=== PATIENT | female | born 1955 | race Caucasian/White ===

== ENCOUNTER 2018-12-13 18:55 | Inpatient (IN) ==
[2018-12-13] MEDS ORDERED: TYLENOL PO ONE (19:01)
--- NOTE | 2018-12-13 20:31 | Diag Imaging Result Doc PS360 ---
CHEST-2 VIEWS - 12/13/2018 INDICATION: SOB, fever COMPARISON: 06/13/2018 FINDINGS: There is a dense focal infiltrate in the left lower lobe. Heart size is normal. No pneumothorax or pleural effusion. IMPRESSION: Dense infiltrate at the lateral left lung probably in the lower lobe. The appearance is indeterminate. Correlate for possible pneumonia. Electronically signed by Jorge Blanco 12/13/2018 8:29 PM
[2018-12-13 20:43] LABS: BASO# 0.02 X1000 (0.0-0.2); BASO% 0.1 % (0.0-0.8); HEMATOCRIT 35.8 % (37.0-47.0); HEMOGLOBIN 11.4 g/dL (12.0-16.0); IMM GRAN# 0.14 X1000 (0.0-0.04); IMM GRAN% 0.4 % (0.0-0.5); LYMPH# 0.71 X1000 (1.2-3.4); MCH 26.7 PG (27-31); MCHC 31.8 g/dL (33-37); MCV 83.8 FL (81-99); MONO# 2.14 X1000 (0.11-0.59); MPV 10.9 FL (7.4-10.4); NEUT# 32.66 X1000 (1.4-6.5); NEUT% 91.5 % (42.2-75.2); PLT 565 X1000 (130-400); RBC 4.27 XMIL (4.2-5.4); RDW 15.8 % (11.5-14.5); WBC 35.67 X1000 (4.8-10.8)
[2018-12-13 20:52] LABS: URINE SOURCE CLEAN CATCH
[2018-12-13 21:01] LABS: BILIRUBIN URINE NEGATIVE (NEGATIVE); BLOOD URINE MODERATE (NEGATIVE); COLOR YELLOW; GLUCOSE URINE NEGATIVE (NEGATIVE); KETONE URINE TRACE mg/dL (NEGATIVE); LEUKOCYTES URINE LARGE (NEGATIVE); NITRITE URINE NEGATIVE (NEGATIVE); PH URINE 5.5; PROTEIN URINE 50 mg/dL (NEGATIVE); SP GRAVITY URINE 1.018; TURBIDITY URINE TURBID (CLEAR); UROBILINOGEN URINE 2 mg/dL (NORMAL)
[2018-12-13 21:02] LABS: BANDS 3 % (0-1); LYMPHS 5 % (21-51); MONO 6 % (1-9); SEGS 86 % (42-75)
[2018-12-13 21:02] LABS: UR EPITHELIAL CELLS <10 /HPF (<10); URINE BACTERIA 1+ /HPF; URINE RBC TNTC /HPF (<10); URINE WBC 20-40 /HPF (<10)
[2018-12-13] MEDS ORDERED: ROCEPHIN 1 GM in NS 50 ML IV ONE (21:03)
[2018-12-13] MEDS ORDERED: NS 1,000 ML IV ONE ×2 (21:03→21:22)
[2018-12-13 21:07] LABS: AGAP 17; ALB/GLOB RATIO 1.1; ALBUMIN 3.9 g/dL (3.5-5.0); ALKALINE PHOSPHATASE 86 U/L (32-104); BUN 23 mg/dL (8-22); CALCIUM 9.6 mg/dL (8.8-10.2); CHLORIDE 93 mmol/L (98-107); COSMO 268; CREATININE 0.8 mg/dL (0.5-0.9); ESTIMATED GFR > 60; GLUCOSE 94 mg/dL (70-104); GOT 21 U/L (10-30); GPT 7 U/L (10-36); MAGNESIUM 1.6 mg/dL (1.5-2.7); POTASSIUM 3.9 mmol/L (3.5-5.1); SODIUM 132 mmol/L (136-145); TCO2 22 mmol/L (25-35); TOTAL BILIRUBIN 0.39 mg/dL (0.20-1.00); TOTAL PROTEIN 7.5 g/dL (6.3-8.3)
--- NOTE | 2018-12-13 21:46 | Diag Imaging Result Doc PS360 ---
CT ABD/PELVIS W/IV CONT ONLY - 12/13/2018 INDICATION: abdo pain COMPARISON: None FINDINGS: The lung bases are clear and the heart size is normal. There is a relatively large hiatal hernia. There is also a tiny, 1-2 cm fat-containing ventral hernia. The gallbladder is not demonstrated. Otherwise abdominal organs all appear normal. No bowel obstruction or inflammation. Urinary bladder, uterus, and rectum are normal. There are moderate degenerative changes of the spine. No acute or suspicious bony lesion. IMPRESSION: Hiatal hernia. No acute disease. This exam was performed using automated exposure control, adjustment of mA or kV according to patient size, and/or use of iterative reconstruction technique Electronically signed by Jorge Blanco 12/13/2018 9:43 PM
[2018-12-13] MEDS ORDERED: NS NEB INH SCH (23:52)
[2018-12-13] MEDS ORDERED: TYLENOL PO PRN (23:52)
[2018-12-13] MEDS ORDERED: ZOFRAN IV PRN (23:52)
[2018-12-14] MEDS: MUCOMYST 20% INH SCH ×2 (00:26→19:05)
[2018-12-14] MEDS: XOPENEX NEB INH SCH ×3 (00:26→19:05)
[2018-12-14] MEDS: MAXIPIME 2 GM in NS 100 ML IV SCH ×4 (00:50→22:53)
[2018-12-14] MEDS: NS 1,000 ML IV SCH ×3 (00:50→10:41)
[2018-12-14] MEDS: PROTONIX IV SCH ×3 (00:51→22:54)
[2018-12-14 00:56] LABS: ALLEN TEST YES; BE -0.7 mmoll (-3.0-3.0); BLOOD TYPE ARTERIAL; HCO3-(ACT) 24.3 mmoll (20.0-26.0); O2(CT) 13.5 mL/dL (15.0-23.0); O2HB 93.5 % (95.0-99.0); PCO2(98.6) 33 mmHg (35-45); PO2(98.6) 70 mmHg (60-100); SAMPLE BLOOD; SAO2 96.3 % (95.0-100.0); THB 10.2 g/dL (11.5-17.4); pH(98.6) 7.45 (7.35-7.45)
[2018-12-14 00:57] LABS: MODALITY CANNULA
--- NOTE | 2018-12-14 03:20 | HISTORY AND PHYSICAL ---
CHIEF COMPLAINT: Shortness of breath. HISTORY OF PRESENT ILLNESS: This is a 63-year-old female with a longstanding smoking history and COPD, who is coming in with severe shortness of breath the last 2 to 3 days. She came in with productive cough for the last 2 to 3 days, shortness of breath. Family reports nausea and vomiting last night. No diarrhea. She does suffer from chronic constipation. She sees a senior project engineer in the [place] area, possibly a Dr. Escobedo, and she is being set up with a singer and unloader, although no cardiac history per se. She has at least a 40 pack year history of smoking. She stopped smoking about 3 days ago, just because she could not tolerate it. No reported fevers. She is legally blind. 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 She has been seen in [place] and [facility] for that. She came in the ER, from my standpoint septic, even though her lactate was normal. She was tachycardic with heart rate in the 140s, respiratory rate up to the 40s. Now that has since improved. Temperature of 103.1 degrees, 94% on room air. Cardiovascular, regular rate and rhythm. Workup showed a left upper lobe infiltrate. She also had evidence of a possible urinary tract infection. She has been complaining of left-sided flank pain. Also found to have a white count of 35,000. Abdominal CT was negative. She was admitted for pneumonia, UTI, sepsis. PAST MEDICAL HISTORY: 1. COPD. 2. Anxiety and depression. 3. Hyperlipidemia. 4. Hypothyroidism. 5. GERD. No cardiac history. No diabetes. PAST SURGICAL HISTORY: Again, attempted surgery on her face due to an arterial malformation but that could not be completed. SOCIAL HISTORY: Again, she smokes probably over a pack a day, probably a 40 pack year history. No alcohol. No drugs. She lives with family. MEDICATIONS: Medication list is incomplete. She is on reportedly Zocor, Abilify, docusate, fenofibrate, iron sulfate, Synthroid, Prilosec, Protonix, and Effexor. REVIEW OF SYSTEMS: No weight loss or appetite changes. She does have some chronic constipation. No chest pain. No diarrhea. No dysuria. No hematuria. No hematochezia. No melena. Otherwise, negative times a 10 point review of systems. PHYSICAL EXAMINATION: VITAL SIGNS: Blood pressure is currently 90s/70s. Heart rate is down to the 90s and had been in the 130s, respiratory rate is around the 20s and had been up to the 40s, and temperature was a 103.1 degrees. GENERAL: A well-developed female in mild distress. HEENT: Pupils equal, round, and reactive to light. Ears, nose, and throat exam, moist mucous membranes. NECK: Supple. CARDIOVASCULAR EXAMINATION: Tachycardia. PULMONARY: Diffuse rhonchi. She had rales in her left upper lobe. GI: Soft, nontender, nondistended. Bowel sounds were positive. EXTREMITY EXAMINATION: No clubbing or cyanosis. LYMPHATICS: No peripheral edema. NEUROLOGICAL: Examination was nonfocal. LABORATORY DATA: Her white count is 35,000 with 3% bands, hemoglobin and hematocrit 11 and 35, platelets 565,000. Comp was normal. She had large leukocytes, khq-[id number]-fq-count red blood cells but less than 10. Her flu screen was negative but this flu season, it seems commonly negative. ASSESSMENT AND PLAN: A 63-year-old female with a history of chronic obstructive pulmonary disease, dyslipidemia, presenting with shortness of breath, cough, fever, and pneumonia, and then likely possible urinary tract infection. 1. Left upper lobe pneumonia, I would say complicated. At this point, it is community-acquired but she has some degree of sepsis with tachycardia and fever. We went ahead and volume resuscitated her accordingly and we will start antibiotics, cefepime and azithromycin, and follow. We will continue pulmonary toilet. I am going to go ahead and progress with a CT scan tomorrow and a pulmonary consult. 2. Respiratory failure. We will continue to follow. Oxygen levels are not terrible. We will check ABG and monitor closely. 3. Continue gastrointestinal and deep venous thrombosis prophylaxis. 4. Hypothyroidism. We will continue checking her thyroid function and update her medications. 5. Possible urinary tract infection. We will obtain urine culture and treat accordingly. Follow closely. 6. This is a patient of Dr. Da Aguilar. I think he is in the [facility]. cc: Kalpesh Le MD
[2018-12-14 05:44] LABS: BASO# 0.02 X1000 (0.0-0.2); BASO% 0.1 % (0.0-0.8); HEMATOCRIT 30.8 % (37.0-47.0); HEMOGLOBIN 9.8 g/dL (12.0-16.0); IMM GRAN# 0.15 X1000 (0.0-0.04); IMM GRAN% 0.5 % (0.0-0.5); LYMPH# 1.19 X1000 (1.2-3.4); LYMPH% 3.7 % (20.5-51.1); MCH 26.8 PG (27-31); MCHC 31.8 g/dL (33-37); MCV 84.4 FL (81-99); MONO# 1.64 X1000 (0.11-0.59); MONO% 5.1 % (1.7-9.3); MPV 10.5 FL (7.4-10.4); NEUT# 29.44 X1000 (1.4-6.5); NEUT% 90.6 % (42.2-75.2); PLT 456 X1000 (130-400); RBC 3.65 XMIL (4.2-5.4); WBC 32.44 X1000 (4.8-10.8)
[2018-12-14 06:00] LABS: AGAP 12; ALB/GLOB RATIO 1.4; ALBUMIN 3.3 g/dL (3.5-5.0); ALKALINE PHOSPHATASE 61 U/L (32-104); BUN 20 mg/dL (8-22); CALCIUM 9.1 mg/dL (8.8-10.2); CHLORIDE 104 mmol/L (98-107); COSMO 276; CREATININE 0.7 mg/dL (0.5-0.9); ESTIMATED GFR > 60; GLUCOSE 91 mg/dL (70-104); GOT 14 U/L (10-30); GPT 5 U/L (10-36); POTASSIUM 4.2 mmol/L (3.5-5.1); SODIUM 137 mmol/L (136-145); TCO2 21 mmol/L (25-35); TOTAL BILIRUBIN 0.26 mg/dL (0.20-1.00); TOTAL PROTEIN 5.6 g/dL (6.3-8.3)
[2018-12-14] MEDS ORDERED: LOVENOX SUBQ SCH (06:00)
--- NOTE | 2018-12-14 09:43 | Diag Imaging Result Doc PS360 ---
EXAM: CT THORAX W/CONTRAST INDICATION: pneumonia TECHNIQUE: This exam was performed using automated exposure control, adjustment of mA or kV according to patient size, and/or use of iterative reconstruction technique. COMPARISON: None. FINDINGS: There is dense airspace consolidation involving the inferior lingular segment of the left upper lobe consistent with pneumonia. There is minimal consolidation and/or atelectasis at the lateral left lower lobe at the base. There is no pleural fluid collection and no pneumothorax. There are shotty mildly prominent mediastinal lymph nodes that are probably reactive. There is no cardiomegaly. There is a fairly large hiatal hernia. There are a few mild nonspecific distended loops of small bowel in the upper abdomen, likely representing ileus. IMPRESSION: 1.Left upper lobe pneumonia as described and minimal infiltrate versus atelectasis at the left lung base. 2.A few distended loops of small bowel involving the upper abdomen that are nonspecific. Electronically signed by Ru West 12/14/2018 9:41 AM
[2018-12-14] MEDS ORDERED: VANCOMYCIN IV PER PHARMACY MISC SCH (09:45)
[2018-12-14 09:50] LABS: URINE SOURCE CATH
[2018-12-14 09:55] LABS: BILIRUBIN URINE NEGATIVE (NEGATIVE); BLOOD URINE MODERATE (NEGATIVE); COLOR YELLOW; GLUCOSE URINE NEGATIVE (NEGATIVE); KETONE URINE NEGATIVE (NEGATIVE); LEUKOCYTES URINE NEGATIVE (NEGATIVE); NITRITE URINE NEGATIVE (NEGATIVE); PROTEIN URINE 30 mg/dL (NEGATIVE); SP GRAVITY URINE > 1.050; TURBIDITY URINE CLEAR (CLEAR); UR EPITHELIAL CELLS <10 /HPF (<10); URINE BACTERIA NEGATIVE /HPF; URINE RBC <10 /HPF (<10); URINE WBC <10 /HPF (<10); UROBILINOGEN URINE NORMAL (NORMAL)
--- NOTE | 2018-12-14 10:13 | PROGRESS NOTE ---
DATE: 12/14/2018 OVERNIGHT EVENTS: Ms. Harley was admitted for severe sepsis secondary to left upper lobe pneumonia with a suspected urinary tract infection, was given intravenous fluids, and was started on intravenous antibiotics. SUBJECTIVE: The patient, at the time of my encounter, complains of persistent shortness of breath, left-sided pleuritic chest pain. She denies palpitations, nausea, vomiting, or abdominal pain. She states that she has been legally blind since she was 18. She does have some residual vision on the right side. I discussed about her critical condition and plans for keeping her inside the hospital in a closely monitored environment. VITALS: Temperature 98.5 degrees, pulse 114 per minute, blood pressure 111/74, saturating 93% on 2 L nasal cannula. OBJECTIVE: General: Appears in mild distress because of tachypnea. HEENT: She has corneal scarring affecting left eye. Right eye pupil is round and reacting to light. She also has a bony deformity affecting forehead. Lungs: Air entry bilaterally equal, tachypneic. No wheeze, rhonchi, or crackles on the right side. However, decreased air entry with inspiratory crackles on the left infrascapular region. Cardiovascular: S1, S2 normal. No murmur, gallop, tachycardic. Abdomen: Soft, nontender. Lower Extremities: No edema. Input and output: Suggests -150 mL. Lee catheter order has been placed. LAB: Suggests persistent leukocytosis, normocytic anemia, thrombocytosis, normal ABG, resolution of hyponatremia, hypochloremia, normal kidney function, low TSH. Microbiology: No data as of yet. IMAGING: Chest CT is suggestive of left upper lobe infiltrate. ASSESSMENT AND PLAN: 1. Severe sepsis from left upper lobe pneumonia. Follow up with sputum culture and blood culture. Follow up with urine Legionella antigen. Continue intravenous cefepime and add intravenous vancomycin. 2. Tachycardia, likely in the setting of sepsis. Continue intravenous fluids. I decreased the intravenous fluid rate, as the patient had received adequate intravenous fluids by boluses and continuous infusions. 3. Continue urine Lee catheterization for close input and output monitoring. 4. History of hypothyroidism. Continue home levothyroxine. Continue ferrous sulfate for history of anemia. 5. Continue home buspirone and venlafaxine for history of anxiety and simvastatin for history of hyperlipidemia. 6. History of chronic obstructive pulmonary disease. Continue levalbuterol and home tiotropium inhalers. 7. Disposition. The patient will be transferred to [facility]. If her blood pressure drops, my plan is to start her on norepinephrine and transfer to ICU. Plan of care was discussed with the patient and nursing team at the bedside. All of their questions have been answered. cc: Nick Toledo MD
[2018-12-14] MEDS ORDERED: VANCOMYCIN 1,500 MG in NS 250 ML IV ONE (11:00)
[2018-12-14] MEDS: LOMOTIL PO PRN ×2 (16:05→20:16)
[2018-12-14] MEDS: FERROUS SULFATE PO SCH (20:07)
[2018-12-14] MEDS: ZOCOR PO SCH (20:07)
[2018-12-14] MEDS: BUSPAR PO SCH (20:08)
[2018-12-14] MEDS: NORCO-7.5 PO PRN (20:35)
[2018-12-14] MEDS: SODIUM CHLORIDE 0.9% INJ SCH (22:44)
[2018-12-15] MEDS: NS 1,000 ML IV SCH ×2 (01:09→14:08)
--- NOTE | 2018-12-15 01:32 | CONSULTATION ---
DATE OF CONSULTATION: 12/14/2018 REQUESTING PROVIDER: Dr. Ilia Le. REASON FOR CONSULTATION: Pneumonia, respiratory failure. HISTORY OF PRESENT ILLNESS: This is a 63-year-old female with a medical history of COPD, hyperlipidemia, hypothyroidism, gastroesophageal reflux disease, chronic constipation, tobacco abuse, legal blindness, anxiety and depression. She presented to the ER on 12/13/2018 with severe shortness of breath for 2 to 3 days with productive cough, nausea, vomiting, constipation and left-sided flank pain. In the ER, she was tachycardic with heart rate at 140s, tachypnea with respiratory rate at 40s, temperature of 103.1 degrees. Chest x- ray showed dense focal infiltrates in the left lower lobe. Lab revealed significant leukocytosis with white blood cell up to 35.67. She has been admitted for pneumonia, UTI and sepsis. At the time of my exam, patient's daughter and sister are at the bedside. The patient has 1 episode of severe dry cough. She also reports shortness of breath and left-sided pleuritic chest pain. She denies headache, nausea, vomiting, abdominal pain or palpitation. PAST MEDICAL HISTORY: 1. COPD. 2. Hyperlipidemia. 3. Hypothyroidism. 4. Gastroesophageal reflux disease. 5. Chronic constipation. 6. Tobacco abuse. 7. Legal blindness since patient was 18-year-old. She had some residual vision on her right eye. 8. Anxiety and depression. PAST SURGICAL HISTORY: Attempted surgery on her face due to an arterial malformation but that could not be completed. SOCIAL HISTORY: Patient lives alone with Home Health care. She reports she smokes 1 pack per day for over 40 years. She tried to quit one time for about 1-1/2 months without medication. She says she is ready to quit smoking again, but she would like to quit with medication. She denies alcohol or illicit drug use. FAMILY HISTORY: Reviewed and noncontributory. ALLERGIES: No known drug allergies. REVIEW OF SYSTEMS: A 10 point review of system was conducted and the pertinent is listed within the HPI, otherwise noncontributory. PHYSICAL EXAMINATION: Vital Signs: Temperature 98.6 degrees, blood pressure 114/67, pulse 116, respiratory rate 20, oxygen saturation 98% with nasal cannula at 2 L. General : Appears in moderate respiratory distress with persistent dry cough, and shortness of breath and tachypnea. HEENT: Trachea midline. Mucosa pink and slightly dry. Patient is legally blind with some residual vision in her right eye. She has a bone deformity on her forehead. Respiratory: Tachypnea. Chest expansion bilaterally equal. Diminished breathing sounds bibasilarly with the left side worse than the right side. Rhonchi bilaterally. No wheezing or crackles noted. Cardiovascular: Regular rate and rhythm without appreciable murmur. Gastrointestinal: Normoactive bowel sounds in all 4 quadrants. Soft, nondistended, and nontender. Extremities: No pedal edema. No cyanosis. No clubbing. Neurologic: Alert, oriented x3 with generalized weakness. DIAGNOSTIC DATA: Chest CT revealed left upper lobe pneumonia and minimal infiltrate versus atelectasis at the left lung base, a few distended loops of small bowel involving the upper abdomen that are nonspecific. LAB DATA: White blood cell 32.44, hemoglobin 9.8, hematocrit 30.8, platelet 456 ,000. Sodium 137, potassium 4.2, chloride 104, carbon dioxide 21, BUN 20, creatinine 0.7, glucose 91. ABG, pH 7.45, pCO2 33, PO2 70, HC03 24.3, base excess -0.7 and oxyhemoglobin 93.5. ASSESSMENT AND PLAN: This is a 63-year-old female with a medical history of chronic obstructive pulmonary disease, hyperlipidemia, hypothyroidism, gastroesophageal reflux disease, chronic constipation, tobacco abuse, legal blindness, anxiety and depression. She has been admitted to the [facility] for pneumonia, UTI and sepsis. 1. Left upper lobe pneumonia. Agree with fluid resuscitation and antibiotic therapy. Agree with pulmonary toilet. 2. Respiratory failure. Continue supplemental oxygen as needed. Check ABG and chest x-ray as indicated. 3. Sepsis, preliminary results of blood culture and urine cultures are negative at this time. Continue antibiotics until the final results of blood and urine cultures come out. Continue fluid resuscitation. 4. Chronic obstructive pulmonary disease. No exacerbation. Continue bronchodilators. Continue supplemental oxygen as needed. 5. Tobacco abuse. Nicotine patch scheduled. Smoking cessation education. 6. Continue gastrointestinal and deep venous thrombosis prophylaxis. Thank you for the courtesy of this consult. Dictated by THADDEUS Zarco for Collin Mckeon MD cc: THADDEUS Zarco MD [facility]
[2018-12-15] MEDS: XOPENEX NEB INH SCH ×2 (03:00→21:02)
[2018-12-15 05:36] LABS: BASO# 0.01 X1000 (0.0-0.2); BASO% 0.1 % (0.0-0.8); EOS# 0.09 X1000 (0.0-0.7); EOS% 0.6 % (0.0-10.0); HEMATOCRIT 32.2 % (37.0-47.0); IMM GRAN# 0.03 X1000 (0.0-0.04); IMM GRAN% 0.2 % (0.0-0.5); LYMPH# 1.28 X1000 (1.2-3.4); LYMPH% 8.5 % (20.5-51.1); MCH 26.7 PG (27-31); MCHC 31.1 g/dL (33-37); MCV 85.9 FL (81-99); MONO# 0.93 X1000 (0.11-0.59); MONO% 6.2 % (1.7-9.3); MPV 10.4 FL (7.4-10.4); NEUT# 12.68 X1000 (1.4-6.5); NEUT% 84.4 % (42.2-75.2); PLT 424 X1000 (130-400); RBC 3.75 XMIL (4.2-5.4); RDW 16.5 % (11.5-14.5); WBC 15.02 X1000 (4.8-10.8)
[2018-12-15] MEDS: SYNTHROID PO SCH ×2 (05:47→07:21)
[2018-12-15 06:04] LABS: AGAP 12; BUN 11 mg/dL (8-22); CALCIUM 8.8 mg/dL (8.8-10.2); CHLORIDE 108 mmol/L (98-107); COSMO 282; CREATININE 0.6 mg/dL (0.5-0.9); ESTIMATED GFR > 60; GLUCOSE 90 mg/dL (70-104); POTASSIUM 3.9 mmol/L (3.5-5.1); SODIUM 142 mmol/L (136-145); TCO2 22 mmol/L (25-35)
[2018-12-15] MEDS: ASPIRIN EC PO SCH (08:38)
[2018-12-15] MEDS: NICODERM PATCH TD SCH ×2 (08:38→22:08)
[2018-12-15] MEDS: LOVENOX SUBQ SCH (08:38)
[2018-12-15] MEDS: FERROUS SULFATE PO SCH ×2 (08:38→20:15)
[2018-12-15] MEDS: BUSPAR PO SCH ×2 (08:38→20:14)
[2018-12-15] MEDS ORDERED: NON-FORMULARY MED (Omeprazole [Prilosec] 40 MG) PO SCH (09:00)
[2018-12-15] MEDS ORDERED: SYNTHROID PO SCH (09:00)
[2018-12-15] MEDS: EFFEXOR XR PO SCH (11:36)
[2018-12-15] MEDS: MAXIPIME 2 GM in NS 100 ML IV SCH ×2 (11:36→21:38)
--- NOTE | 2018-12-15 12:47 | PROGRESS NOTE ---
DATE: 12/15/2018 OVERNIGHT EVENTS: She was transferred to [facility] from the emergency room. She has not had any fever episode. Her map is running low, between 60 to 65. However, she was making an adequate amount of urine. She was tolerating low blood pressure spells. SUBJECTIVE: She is complaining of cough, with expectoration and some chest pain associated with cough. She also has some nausea. The patient's sister is at bedside. Plan of care has been discussed with her. All of her questions have been answered. OBJECTIVE: Vitals: Current temperature 98 degrees, pulse 95, blood pressure 101/49, saturating 96% on room air. General: Appears in mild distress because of cough. HEENT: She has corneal scarring affecting the left eye. Right eye pupil is round and reactive to light. She has bony deformity affecting the forehead and left shoulder. Lungs: Air entry bilaterally equal. No wheeze or rhonchi or crackles on the right side, however, significantly decreased air entry with inspiratory crackles in the left infrascapular region. Cardiovascular: S1, S2 normal. Tachycardic. No murmur, rub, or gallop. Abdomen: Soft, nontender. Extremities: No lower extremity edema. : Lee catheter has been in place. Input and output suggests 1200 mL of urine output. DIAGNOSTIC DATA: Labs suggestive of improving leukocytosis, stable hemoglobin and hematocrit, and acceptable range of platelet count, normal kidney function, with improvement in BUN. Microbiology, no on positive data as of yet, except positive urine streptococcal antigen. IMAGING: No new imaging today except chest CT yesterday, which was suggestive of left upper lobe pneumonia. ASSESSMENT AND PLAN: 1. Severe sepsis from left upper lobe pneumonia, with positive urine streptococcal antigen, likely streptococcal pneumonia. Follow up final blood and sputum culture results. Continue intravenous cefepime and stop intravenous vancomycin after final results of culture of blood and sputum come back. 2. Tachycardia in the setting of sepsis. Continue the patient on intravenous fluids. Continue Lee catheter for close input and output. Monitor. 3. For history of hypothyroidism, chronic anemia, hyperlipidemia, and anxiety, continue home levothyroxine, ferrous sulfate, buspirone, venlafaxine and simvastatin. 4. History of COPD. Continue albuterol and ipratropium nebulization, and Ditropan. 5. Disposition. The patient remains inside [facility] for streptococcal pneumonia and sepsis. Because of that, the plan of care was discussed with the patient and sister at bedside. All of their questions have been answered. cc: Nick Toledo MD
[2018-12-15] MEDS: NORCO-7.5 PO PRN ×2 (14:08→21:37)
[2018-12-15] MEDS: ZOCOR PO SCH (20:14)
[2018-12-15] MEDS: MUCOMYST 20% INH SCH (21:00)
[2018-12-15] MEDS: VANCOMYCIN 1,300 MG in NS 250 ML IV SCH (21:26)
[2018-12-15] MEDS: PROTONIX IV SCH (21:37)
--- NOTE | 2018-12-15 23:15 | PULMONOLOGY PROGRESS NOTE ---
DATE: 12/15/2018 SUBJECTIVE: The patient is awake, alert, and conversant. She reports she feels better than on admission. OBJECTIVE: The patient has been afebrile over the last 24 hours. Blood pressure 110/55, heart rate 96, respiratory rate 16, oxygen saturation 95% on 2 L per nasal cannula. HEENT: Pupils are equal and reactive. Oropharynx is clear. Neck: Supple. Chest: Reveals crackles in the left mid lung zone but clear on the right. Cardiac exam: S1, S2. Abdomen: Soft and without hepatosplenomegaly. Extremities: Without edema. LABORATORIES: Streptococcal pneumonia urine antigen is positive. Sodium 142, potassium 3.9, chloride 108, bicarbonate 22, BUN 11, creatinine 0.6. White blood count 15.02, hemoglobin 10.0, platelet count 424,000. IMPRESSION: A 63-year-old with chronic obstructive pulmonary disease, pneumococcal pneumonia, urinary tract infection, with hypoxemic respiratory failure. Clinically, she appears to be improving. RECOMMENDATIONS: 1. Continue IV fluids but consider discontinuing in the next 24 hours if p.o. intake is adequate to prevent fluid overload. 2. Continue bronchial hygiene. 3. Continue oxygen for hypoxemic respiratory failure. 4. Continue DVT prophylaxis. 5. Continue current antibiotic regimen. cc: Александр Ramirez MD
[2018-12-16] MEDS: VANCOMYCIN 1,300 MG in NS 250 ML IV SCH (00:06)
[2018-12-16] MEDS: PROTONIX IV SCH ×2 (00:06→23:10)
[2018-12-16] MEDS: NS 1,000 ML IV SCH ×2 (00:34→07:14)
[2018-12-16] MEDS ORDERED: AYR NASAL SPRAY NAS PRN (01:55)
[2018-12-16] MEDS: XOPENEX NEB INH SCH ×4 (03:39→21:32)
[2018-12-16] MEDS: MAXIPIME 2 GM in NS 100 ML IV SCH ×3 (05:00→23:09)
[2018-12-16] MEDS: SYNTHROID PO SCH ×2 (05:40→06:07)
[2018-12-16 06:35] LABS: AGAP 9; BUN 6 mg/dL (8-22); CALCIUM 8.5 mg/dL (8.8-10.2); CHLORIDE 111 mmol/L (98-107); COSMO 283; CREATININE 0.6 mg/dL (0.5-0.9); ESTIMATED GFR > 60; GLUCOSE 114 mg/dL (70-104); POTASSIUM 3.1 mmol/L (3.5-5.1); SODIUM 143 mmol/L (136-145); TCO2 23 mmol/L (25-35)
[2018-12-16] MEDS: ASPIRIN EC PO SCH (08:40)
[2018-12-16] MEDS: NICODERM PATCH TD SCH (08:40)
[2018-12-16] MEDS: EFFEXOR XR PO SCH (08:40)
[2018-12-16] MEDS: FERROUS SULFATE PO SCH ×2 (08:40→21:04)
[2018-12-16] MEDS: BUSPAR PO SCH ×2 (08:40→21:04)
[2018-12-16] MEDS: MUCOMYST 20% INH SCH ×3 (09:43→21:32)
[2018-12-16] MEDS: OLODATEROL HCL IH SCH (09:44)
[2018-12-16] MEDS: TIOTROPIUM BR IH SCH (09:44)
[2018-12-16] MEDS ORDERED: MAGNESIUM SULFATE 2 GM/S.W.I. 2 GM/50 ML IVPB IV ONE (10:42)
[2018-12-16] MEDS: LOVENOX SUBQ SCH (11:26)
[2018-12-16] MEDS: KLOR-CON PO SCH ×3 (12:03→21:04)
--- NOTE | 2018-12-16 13:08 | PROGRESS NOTE ---
DATE: 12/16/2018 Overnight no acute events. SUBJECTIVE: When I saw her, she was sitting in the chair by the bed. She is denying any chest pain. She is still feeling a little short of breath. She is coughing up yellowish expectoration which is persistent. Her maps have been 60 to 65. Discussed about pneumonia. Patient's daughter is at bedside who is her surrogate decision maker. Plan of care has been discussed with her. PHYSICAL EXAMINATION: Vital Signs: Currently, temperature of 98.1 degrees, pulse 90, blood pressure 126/68, saturating 95% on room air. General: She has corneal scarring affecting the left eye. Right eye pupil is round and reacting to light. She has a bony deformity affecting the forehead and left shoulder. Lungs: Air entry bilaterally equal. No wheeze or rhonchi. Mild inspiratory crackles on right infrascapular region. Decreased air entry and inspiratory crackles on left infrascapular region. Cardiovascular: S1, S2 normal. Not tachycardic. No murmur, rub, or gallop. Abdomen: Soft, nontender. Extremities: No lower extremity edema. She has a Lee catheter in place. Input and output suggests positive 600 mL since admission. However, it is not charted appropriately. LABORATORY DATA: Suggestive of hypokalemia and hyperchloremia. ASSESSMENT AND PLAN: 1. Severe sepsis from left upper lobe pneumonia with positive urine streptococcal antigen, likely streptococcal pneumonia. Sputum culture has not shown any growth. Blood culture has been negative. I will discontinue intravenous vancomycin and continue intravenous cefepime. The plan is to eventually transition her to p.o. antibiotics once her oxygen requirement becomes stable. 2. Tachycardia in the setting of sepsis. It is a sinus tachycardia on rhythm strip. I will get official EKG. 3. Acute hypoxic respiratory failure with history of chronic obstructive pulmonary disease. Continue albuterol and ipratropium nebulization. Continue oxygenation to maintain saturation more than 92%. Continue acetylcysteine. Continue levalbuterol nebulization. 4. History of hypothyroidism, chronic anemia, hyperlipidemia, and anxiety. Continue home levothyroxine, ferrous sulfate, buspirone, venlafaxine and simvastatin. 5. Hypokalemia being repleted. 6. Hyperchloremia likely because of normal saline resuscitation. I will discontinue intravenous fluids. Discontinue Lee catheter. I advanced the patient's diet to regular. 7. Disposition: Patient remains in [facility] for streptococcal pneumonia and sepsis. Plan of care was discussed with the patient's daughter at bedside. All of the questions have been answered. cc: Nick Toledo MD
--- NOTE | 2018-12-16 14:57 | PULMONOLOGY PROGRESS NOTE ---
DATE: 12/16/2018 SUBJECTIVE: The patient is laying in bed. She is awake, alert, and conversant. She has significant rhonchi. She is asking for her Lee catheter to be removed. OBJECTIVE: The patient has been afebrile for the last 24 hours. BP 126/68, heart rate 90, respiratory rate 18, oxygen saturation 95% on 2 L per nasal cannula. HEENT: Pupils are equal and reactive. Oropharynx is clear. Neck is supple. Chest reveals coarse rhonchi bilaterally. Cardiac Exam: S1-S2. Abdomen is soft and without hepatosplenomegaly. Extremities reveal trace edema. LABORATORIES: Sodium 143, potassium 4.1, chloride 111, bicarbonate 23. BUN 6, creatinine 0.6. Sputum cultures reveal normal bebeto with gram-positive cocci. IMPRESSION: A 63-year-old with 1. Chronic obstructive pulmonary disease. 2. Pneumococcal pneumonia. 3. Urinary tract infection. 4. Hypoxemic respiratory failure. She has more rhonchi on exam today and may be mobilizing secretions. RECOMMENDATIONS: 1. Continue bronchial hygiene. 2. Continue antibiotics. 3. Continue DVT prophylaxis. 4. I agree with plans to discontinue Lee catheter. 5. Mobilize patient and get her out of bed as tolerated. 6. Two-view chest x-ray tomorrow morning. cc: Александр Ramirez MD
[2018-12-16] MEDS: ZOCOR PO SCH (21:04)
[2018-12-17] MEDS: XOPENEX NEB INH SCH ×5 (04:00→21:43)
[2018-12-17 05:45] LABS: BASO# 0.02 X1000 (0.0-0.2); BASO% 0.3 % (0.0-0.8); EOS# 0.21 X1000 (0.0-0.7); HEMATOCRIT 28.2 % (37.0-47.0); HEMOGLOBIN 8.8 g/dL (12.0-16.0); IMM GRAN# 0.03 X1000 (0.0-0.04); IMM GRAN% 0.4 % (0.0-0.5); LYMPH# 1.12 X1000 (1.2-3.4); LYMPH% 15.8 % (20.5-51.1); MCH 26.6 PG (27-31); MCHC 31.2 g/dL (33-37); MCV 85.2 FL (81-99); MONO% 9.9 % (1.7-9.3); MPV 10.3 FL (7.4-10.4); NEUT% 70.6 % (42.2-75.2); PLT 528 X1000 (130-400); RBC 3.31 XMIL (4.2-5.4); WBC 7.08 X1000 (4.8-10.8)
[2018-12-17 06:18] LABS: AGAP 8; BUN 4 mg/dL (8-22); CHLORIDE 110 mmol/L (98-107); COSMO 282; CREATININE 0.6 mg/dL (0.5-0.9); ESTIMATED GFR > 60; GLUCOSE 95 mg/dL (70-104); MAGNESIUM 2.2 mg/dL (1.5-2.7); POTASSIUM 4.5 mmol/L (3.5-5.1); SODIUM 143 mmol/L (136-145); TCO2 25 mmol/L (25-35)
[2018-12-17] MEDS: SYNTHROID PO SCH (06:24)
[2018-12-17] MEDS: LOVENOX SUBQ SCH (08:44)
[2018-12-17] MEDS: EFFEXOR XR PO SCH (08:44)
[2018-12-17] MEDS: BUSPAR PO SCH ×3 (08:44→22:22)
[2018-12-17] MEDS: ASPIRIN EC PO SCH (08:44)
[2018-12-17] MEDS: NICODERM PATCH TD SCH (08:44)
[2018-12-17] MEDS: FERROUS SULFATE PO SCH ×3 (08:44→22:22)
[2018-12-17] MEDS: NORCO-7.5 PO PRN ×2 (08:53→19:31)
--- NOTE | 2018-12-17 10:44 | PROGRESS NOTE ---
DATE: 12/17/2018 OVERNIGHT EVENTS: Overnight, no acute events. SUBJECTIVE: She is feeling fine. She is breathing well on room air. Denies chest pain or shortness of breath. She is still coughing up some sputum. I discussed with her about her normal WBC count and her clinical improvement. The patient's daughter is at bedside, who is her surrogate decision maker. All of her questions have been answered. VITAL SIGNS: Temperature 98.3 degrees, pulse 97 per minute, blood pressure 150/70, saturating 95% on room air. PHYSICAL EXAMINATION: General: Does not appear in any acute distress. HEENT: Oral cavity is moist. Right pupil is round, reacting to light. She has corneal scarring affecting the left eye. Musculoskeletal: She has a bony deformity affecting forehead and left shoulder. Respiratory: Air entry bilaterally equal. In suprascapular region, inspiratory crackles with decreased air entry in left infrascapular region with egophony. Cardiovascular: S1, S2 normal. Not tachycardic. No murmur, rub, or gallop. Abdomen: Soft, nontender. Extremities: No lower extremity edema. Genitourinary: She does not have a Lee catheter in place. DIAGNOSTIC DATA: EKG was suggestive of normal sinus rhythm. Lab data suggestive of resolution of leukocytosis, hemoglobin of 8.8, and platelet count of 528,000. Resolution of hypokalemia. Normal kidney function. ASSESSMENT AND PLAN: 1. Severe sepsis from left upper lobe pneumonia with positive urine streptococcal antigen, so likely streptococcal pneumonia. Sputum culture is no growth to date. Urine culture had Klebsiella pneumoniae. Continue intravenous cefepime. Follow up with repeat chest x-ray. My plan is to change her from intravenous to oral antibiotics at the time of discharge to complete 7 to 10 days course of treatment as she still has some cough. 2. Tachycardia, sinus on electrocardiogram, in the setting of sepsis, improving. 3. Acute hypoxic respiratory failure with history of chronic obstructive pulmonary disease. Continue albuterol/ipratropium nebulization and oxygenation as required to maintain saturation more than 92%. Continue acetylcysteine. 4. History of hypothyroidism, chronic anemia, hyperlipidemia, and anxiety. Continue home levothyroxine, ferrous sulfate, buspirone, venlafaxine, and simvastatin. 5. Hypokalemia, now resolved. 6. Hyperchloremia because of normal saline resuscitation, now improving. 7. Disposition. I will have physical therapy evaluate the patient. If her functional status is normal, she might be a candidate for discharge to home early next week. Plan of care was discussed with her and her daughter at bedside. All of their questions have been answered. I will transfer patient from [facility] to routine floor. cc: Nick Toledo MD
[2018-12-17] MEDS: TIOTROPIUM BR IH SCH (10:50)
[2018-12-17] MEDS: OLODATEROL HCL IH SCH (10:50)
[2018-12-17] MEDS: MUCOMYST 20% INH SCH ×2 (10:50→21:43)
--- NOTE | 2018-12-17 11:41 | Diag Imaging Result Doc PS360 ---
EXAM: CHEST-2 VIEWS - 12/17/2018 HISTORY: abnormal exam TECHNIQUE: Chest two views COMPARISON: 12/13/2018 FINDINGS: Heart size is normal. There is an air-containing retrocardiac density consistent with hiatal hernia. There has been some increase in left lower lung opacity, which appears to represent a combination of infiltrate and atelectasis. The right lung remains essentially clear. There is a possible small left pleural effusion. There is no pneumothorax identified. IMPRESSION: Some increase in left lower lung infiltrate and atelectasis. Electronically signed by Huseyin Wilson 12/17/2018 11:38 AM
[2018-12-17] MEDS: MAXIPIME 2 GM in NS 100 ML IV SCH (17:00)
[2018-12-17] MEDS: ZOCOR PO SCH ×2 (19:32→22:22)
--- NOTE | 2018-12-17 20:27 | PULMONOLOGY PROGRESS NOTE ---
DATE: 12/17/2018 SUBJECTIVE: Patient reports she feels better. She does have some cough and sputum production, but this has diminished. OBJECTIVE: Vital Signs: The patient has been afebrile for the last 24 hours. Blood pressure 142/70, heart rate 99, respiratory rate 16, oxygen saturation 97%. HEENT: Right pupil is equal, reactive. She has some dysconjugate gaze. Oropharynx appears clear. Neck: Supple. Chest reveals crackles at the left base. Cardiac: S1, S2. Abdomen: Soft without hepatosplenomegaly. Extremities: Without edema. LABORATORIES: Chest x-ray reveals some persistent infiltrates at the left base compared to 12/13/2018. White blood count is now normal at 7.08, hemoglobin 8.8, platelet count 528,000. Sodium 143, potassium 4.5, chloride 110, bicarbonate 25, BUN 4, creatinine 0.6. IMPRESSION: A 63-year-old with chronic obstructive pulmonary disease, who presented with fevers. Initial x-ray was relatively clear, but she has developed infiltrates in the left lung. She has a positive urinary tract antigen for pneumococcus and therefore is being treated for pneumococcal pneumonia. The patient also has a urinary tract infection and acute hypoxemic respiratory failure. Her fevers have resolved and her white blood count is normalizing. RECOMMENDATION: 1. Continue antibiotics. 2. Continue bronchial hygiene. 3. Continue deep vein thrombosis prophylaxis. 4. Ambulate as tolerated. 5. If the patient continues to improve, she could likely be discharged home on oral antibiotics to complete her treatment for pneumonia. She should have a follow-up chest x-ray as a patient. cc: Александр Ramirez MD
[2018-12-17] MEDS: SODIUM CHLORIDE 0.9% INJ SCH (23:09)
[2018-12-17] MEDS: PROTONIX IV SCH (23:09)
[2018-12-18] MEDS: NORCO-7.5 PO PRN ×2 (01:38→11:43)
[2018-12-18] MEDS: MAXIPIME 2 GM in NS 100 ML IV SCH (02:59)
[2018-12-18] MEDS: XOPENEX NEB INH SCH ×2 (04:00→09:34)
[2018-12-18] MEDS: SYNTHROID PO SCH ×2 (04:06→07:36)
[2018-12-18 07:25] VITALS: BP 139/82
[2018-12-18 07:45] LABS: AGAP 11; BUN 5 mg/dL (8-22); CALCIUM 9.4 mg/dL (8.8-10.2); CHLORIDE 101 mmol/L (98-107); COSMO 272; CREATININE 0.7 mg/dL (0.5-0.9); ESTIMATED GFR > 60; GLUCOSE 81 mg/dL (70-104); SODIUM 138 mmol/L (136-145); TCO2 26 mmol/L (25-35)
--- NOTE | 2018-12-18 07:49 | EKG Report ---
Test Performed on : 12/16/2018 12:20:19 PM Test Reason : Tachcycardia Blood Pressure : / mmHG Vent. Rate : 087 BPM Atrial Rate : 087 BPM P-R Int : 136 ms QRS Dur : 072 ms QT Int : 362 ms P-R-T Axes : 042 017 049 degrees QTc Int : 435 ms Normal sinus rhythm. artifact limits leads V3-V5 Otherwise normal ECG When compared with ECG of 13-JUN-2018 14:54, Borderline criteria for Inferior infarct are no longer present Confirmed by Albina QUICK, Raymundo Rios ([id number]) on 12/18/2018 1:14:51 PM
[2018-12-18] MEDS: ASPIRIN EC PO SCH (08:41)
[2018-12-18] MEDS: BUSPAR PO SCH (08:41)
[2018-12-18] MEDS: FERROUS SULFATE PO SCH (08:42)
[2018-12-18] MEDS: NICODERM PATCH TD SCH (08:42)
[2018-12-18] MEDS: OLODATEROL HCL IH SCH (08:42)
[2018-12-18] MEDS: LOVENOX SUBQ SCH (08:42)
[2018-12-18] MEDS: EFFEXOR XR PO SCH (08:42)
[2018-12-18] MEDS: TIOTROPIUM BR IH SCH (08:42)
[2018-12-18] MEDS: MUCOMYST 20% INH SCH (09:33)
[2018-12-18] MEDS ORDERED: PROTONIX PO SCH (21:00)
[2018-12-18] MEDS ORDERED: AUGMENTIN PO SCH (21:00)
--- NOTE | 2018-12-19 04:52 | DISCHARGE SUMMARY ---
ADMISSION DATE: 12/13/2018 DISCHARGE DATE: 12/18/2018 DISCHARGE DIAGNOSES: 1. Severe sepsis. 2. Left upper lobe pneumonia. 3. Positive urine streptococcal antigen. 4. Sinus tachycardia in the setting of sepsis. 5. Acute hypoxic respiratory failure because of streptococcal pneumonia. 6. History of chronic obstructive pulmonary disease. 7. Hypokalemia. 8. Hyperchloremia because of normal saline fluid resuscitation. 9. Klebsiella pneumoniae infection in urine but without symptoms so likely asymptomatic bacteriuria. OTHER DIAGNOSES: 1. History of hypothyroidism. 2. History of chronic anemia with iron deficiency. 3. History of hyperlipidemia. 4. History of anxiety. CONSULTATION DURING HOSPITALIZATION: Pulmonology, Dr. Ramirez. IMAGING DURING HOSPITALIZATION: Chest x-ray on December 13 had detected dense infiltrate in the left lung. Abdomen and pelvis CT had detected hiatal hernia. Chest CT on December 14 had detected left upper lobe pneumonia and minimal infiltrate versus atelectasis of left lung base with a few distended loops of small bowel. Chest x-ray on December 17 had detected some increase in left lung infiltrate and atelectasis. However, the patient had clinically significantly improved. DISCHARGE MEDICATIONS: Simvastatin 40 mg at nighttime, Aripiprazole 10 mg daily, aspirin 81 mg daily, buspirone 15 mg b.i.d., docusate sodium 100 mg b.i.d., fenofibrate 160 mg daily , ferrous sulfate 325 mg b.i.d., levothyroxine 100 mcg daily, omeprazole 40 mg daily, tiotropium/ olodaterol 2 puffs inhaled daily, venlafaxine 150 mg daily, Augmentin 875 mg p.o. b.i.d. (8 tablets ), nicotine patch 21 mg every 24 hours of 14 patches. She was also given a prescription for a repeat chest x-ray and CBC within 1 week. VITAL SIGNS: At the time of discharge, temperature of 98.2, pulse 110 per minute, blood pressure 140/80, saturation 94% on room air. PHYSICAL EXAMINATION: General: At the time of discharge, the patient is awake , alert, walking in the room without any trouble. Denies chest pain or shortness of breath. Lungs : Air entry bilaterally equal in suprascapular region. Slightly diminished air entry in left infrascapular region. However, it is significantly improved than presentation with only mild inspiratory crackles. No wheeze or rhonchi. Cardiovascular: S1 and S2 normal. No murmur , rub, or gallop. Tachycardic with heart rate of 110 per minute but patient is asymptomatic. LABORATORY DATA: Normal electrolytes. CBC at the time of discharge had WBC of 7000, hemoglobin of 8.8, platelets of 528,000. Electrolytes were within normal limits. Microbiology: Urine culture was growing Klebsiella pneumoniae. Urine streptococcal antigen was positive. HOSPITAL COURSE SUMMARY: Ms. Harley is a 63-year-old lady with a longstanding smoking history and COPD who had quit smoking about 3 years ago, who came in with a history of a productive cough of 3 days' duration and shortness of breath. There were also complaints of nausea and vomiting. While in the hospital, a CT scan had detected left upper lobe pneumonia for which she was started on intravenous antibiotics. She was initially requiring oxygen as well. After intravenous antibiotics, intravenous cefepime and intravenous vancomycin, her clinical status improved. Her breathing and cough had improved. At the time of discharge, she had only occasional residual cough and she was breathing well on room air. She was able to walk in the room and hallway without any trouble. She was stable enough to be discharged. She was given prescriptions to get a repeat chest x-ray and CBC within 1 week and follow up with nail tech as an outpatient. 1. Severe sepsis from left upper lobe pneumonia with positive urine streptococcal antigen, status post intravenous vancomycin and cefepime. At the time of discharge, she is to complete Augmentin to complete 7 to 10 days course of antibiotics. 2. Sinus tachycardia on electrocardiogram in the setting of sepsis was stable. 3. Acute hypoxic respiratory failure with a history of COPD. She was continued on nebulization and at the time of discharge, did not need oxygen. 4. She was continued on levothyroxine for hypothyroidism, ferrous sulfate for chronic anemia, buspirone and venlafaxine for her anxiety, and simvastatin for hyperlipidemia. DISCHARGE INSTRUCTIONS: She was also extensively counseled about avoiding smoking and nicotine patches were given. More than 30 minutes were spent in discharging this patient. cc: Nick Toledo MD [facility]
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
== END 2018-12-18 15:04 | disposition home health service (06) | DRG 871 ==
LOC: ED 18:55 → EDIPHOLD 22:07 → SUATTDRO 22:07 → 3S 12-14 14:21 → 4N 12-17 10:18
PROVIDERS: ATTEND Internal Medicine
CPT/HCPCS: 51702; 71020; 71046; 71260; 74177; 80048; 80053; 81001; 82550; 82805; 83605; 83735; 84443; 84484; 85025; 87040; 87070; 87077; 87088; 87186; 87205; 87275; 87276; 87486; 87498; 87541; 87581; 87633; 87640; 87641; 87651; 87798; 87804; 87899; 93005; 93010; 94640; 94761; 96361; 96365; 96367; 96372; 96375; 97162; 99285; A9270; C9113; J0692; J0696; J1650; J2405; J3370; J3475; J7030; J7050; Q9967; S0164

== ENCOUNTER 2019-06-17 09:56 | Inpatient (IN) ==
[2019-06-17] MEDS ORDERED: NS 1,000 ML IV ONE (11:05)
[2019-06-17] MEDS ORDERED: DUONEB (A & A) INH ONE (11:06)
--- NOTE | 2019-06-17 12:21 | Diag Imaging Result Doc PS360 ---
EXAM: CHEST-PORTABLE 06/17/2019 HISTORY: shortness of breath TECHNIQUE: AP upright at 1210 COMMENT: There is a large hiatal hernia. Compared to 12/17/2018 the pleural and parenchymal changes on the left have resolved. No additional abnormalities are present. IMPRESSION: Hiatal hernia. Electronically signed by Anibal Rosales 06/17/2019 12:19 PM
[2019-06-17 12:32] LABS: BASO# 0.01 X1000 (0.0-0.2); BASO% 0.1 % (0.0-0.8); EOS# 0.03 X1000 (0.0-0.7); EOS% 0.3 % (0.0-10.0); HEMATOCRIT 22.6 % (37.0-47.0); HEMOGLOBIN 6.6 g/dL (12.0-16.0); IMM GRAN# 0.02 X1000 (0.0-0.04); IMM GRAN% 0.2 % (0.0-0.5); LYMPH# 1.39 X1000 (1.2-3.4); LYMPH% 15.4 % (20.5-51.1); MCH 26.1 PG (27-31); MCHC 29.2 g/dL (33-37); MCV 89.3 FL (81-99); MONO% 7.8 % (1.7-9.3); MPV 9.2 FL (7.4-10.4); NEUT# 6.88 X1000 (1.4-6.5); NEUT% 76.2 % (42.2-75.2); PLT 565 X1000 (130-400); RBC 2.53 XMIL (4.2-5.4); WBC 9.03 X1000 (4.8-10.8)
[2019-06-17 13:01] LABS: AGAP 9; ALB/GLOB RATIO 1.4; ALKALINE PHOSPHATASE 45 U/L (32-104); BUN 46 mg/dL (8-22); CALCIUM 8.7 mg/dL (8.8-10.2); CHLORIDE 105 mmol/L (98-107); CK PROFILE 50 U/L (24-173); COSMO 288; CREATININE 0.8 mg/dL (0.5-0.9); ESTIMATED GFR > 60; GLUCOSE 105 mg/dL (70-104); GOT 7 U/L (10-30); GPT < 5 U/L (10-36); POTASSIUM 4.8 mmol/L (3.5-5.1); SODIUM 138 mmol/L (136-145); TCO2 24 mmol/L (25-35); TOTAL BILIRUBIN < 0.15 mg/dL (0.20-1.00); TOTAL PROTEIN 5.2 g/dL (6.3-8.3)
[2019-06-17] MEDS ORDERED: ZOFRAN IV PRN (13:47)
[2019-06-17] MEDS ORDERED: DUONEB (A & A) INH PRN (13:49)
--- NOTE | 2019-06-17 13:58 | PROVIDER DOCUMENTATION ---
This chart was entered by Andrea Davis Scribe, acting as scribe for Vicente Martel DO. HPI-Respiratory General - General Chief Complaint: Nausea/Vomiting Stated Complaint: SICK OVER A WEEK Time Seen by Provider: 06/17/19 10:57 Source: patient Allergies/Adverse Reactions: Patient Allergies Allergy/AdvReac Type Severity Reaction Status Date / Time No Known Allergies Allergy Verified 12/13/18 20:11 Home Medications: Home Medication List Medication Instructions Recorded Confirmed Last Taken Type Aripiprazole 10 mg PO DAILY 06/13/18 12/14/18 12/13/18 07:00 History Docusate Sodium [Doc-Q-Lace] 100 mg PO BID 06/13/18 12/14/18 12/13/18 07:00 History Fenofibrate 160 mg PO DAILY 06/13/18 12/14/18 12/13/18 07:00 History Ferrous Sulfate 325 mg PO BID 06/13/18 12/14/18 12/13/18 07:00 History Levothyroxine Sodium 100 mcg PO DAILY 06/13/18 12/14/18 12/13/18 07:00 History Omeprazole [Prilosec] 40 mg PO DAILY 06/13/18 12/14/18 12/13/18 07:00 History SIMVAstatin [Zocor] 40 mg PO QHS 06/13/18 12/14/18 12/12/18 20:00 History Venlafaxine HCl [Venlafaxine HCl 150 mg PO DAILY 06/13/18 12/14/18 12/13/18 07:00 History ER] Aspirin [Aspir-Low] 81 mg PO DAILY 12/14/18 12/14/18 12/13/18 07:00 History Buspirone HCl 15 mg PO BID 12/14/18 12/14/18 12/13/18 07:00 History Tiotropium Br/Olodaterol HCl 2 puff IH DAILY 12/14/18 12/14/18 12/12/18 14:00 History [Stiolto Respimat Inhal [place]] Amoxicillin/Pot Clavulanate 875 mg PO BID #8 tab 12/18/18 Unknown Rx [Augmentin] Nicotine Patch [Nicoderm Patch] 21 mg TD DAILY #14 patch.td24 12/18/18 Unknown Rx - History of Present Illness-Resp Nature of Presenting Problem: Pt is 63 y/o F presents to the ED with SOB, N/V stating she thinks she could be dehydrated. She could not says specifically when this all began but says it ahas been intermittent for about 1 week. She reports a HX of COPD. Quality of Pain: reports: none Severity in ED: reports: moderate Onset/Duration: reports: 1 week ago Timing: reports: still present Context: denies: recent foreign travel Exposure: reports: unknown cause Cough Quality/Degree: reports: no cough Current Respiratory Medication Therapy: Initiated see nurses note Modifying Factors: improves with: nothing Associated Symptoms: reports: shortness of breath. denies: cough, dizziness, fever/chills, hurts to breathe, hyperventilating, lightheadedness, nasal congestion Similar Symptoms Previously?: Yes Recently seen or treated by another doctor?: No Review of Systems - Adult - REVIEW OF SYSTEMS - ADULT Constitutional: denies: chills, fever Eyes: reports: no symptoms reported Ears, Nose, Mouth & Throat: denies: ear pain, throat pain Cardiovascular: denies: chest pain, edema Respiratory: reports: shortness of breath, wheezing. denies: cough Gastrointestinal: reports: abdominal pain, nausea, vomiting Genitourinary: denies: dysuria, discharge Musculoskeletal: denies: back pain, neck pain Integumentary: reports: no symptoms reported Neurological: denies: dizziness/vertigo, headache/migraines, slurred speech, syncope Psychiatric: reports: no symptoms reported Endocrine: reports: no symptoms reported Hematologic/Lymphatic: reports: no symptoms reported Allergic/Immunologic: reports: no symptoms reported All Other Systems: Reviewed and Negative Past History - Adult - PAST MEDICAL HISTORY-ADULT Review of Records: reports: Old Records Reviewed, Nursing Assessment Review, Medications Reviewed Major Childhood Illnesses: reports: denies history Cardiovascular: reports: denies history Respiratory: reports: denies history Gastrointestinal: reports: denies history Obstetrical/Gynecological: reports: denies history Genitourinary: reports: denies history Musculoskeletal: reports: denies history Neurological: reports: denies history Psychiatric: reports: denies history Endocrine/Immune: reports: denies history Other Conditions: reports: denies history - PRIOR SURGERIES/PROCEDURES Surgical/Procedure History: reports: reviewed, not pertinent - IMMUNIZATION STATUS Childhood Immunizations: See Nurse Assessment Flu Vaccine: See Nurse Assessment - FAMILY HISTORY Family History: reviewed, not pertinent - SOCIAL HISTORY Smoking: non-smoker Living Situation: alone Physical Exam-General - PHYSICAL EXAM-ADULT Initial Vital Signs Reviewed: Yes - CONSTITUTIONAL General Appearance: appears well, alert, no apparent distress - EYES Eyes: PERRL/EOMI, pink conjunctivae - NECK Neck: non-tender, full range of motion, supple, normal inspection - RESPIRATORY Respiratory: decreased breath sounds, rales (bilateral), wheezing (bilateral), increased rate - CARDIOVASCULAR Cardiovascular: normal peripheral pulses, tachycardia - GASTROINTESTINAL (ABDOMEN) Abdominal Exam: normal bowel sounds, tenderness (diffuse) - MUSCULOSKELETAL Back Exam: normal inspection, no CVA tenderness, no vertebral tenderness Extremity: normal range of motion, non-tender, normal gait, normal inspection - SKIN Integumentary: normal color, normal turgor, warm/dry - NEUROLOGIC Neurologic: grossly normal, no motor/sensory deficits - PSYCHIATRIC Psych/Mental Status: normal mood/affect, normal thought content, normal thought process, oriented x 3 Progress - PLAN OF CARE/RESULTS Progress/Plan/Lab Results: Vital Signs - 8 hr 06/17/19 10:08 06/17/19 11:44 Temperature 97.8 F Pulse Rate 108 H 101 H Respiratory Rate 22 20 Blood Pressure 107/71 O2 Sat by Pulse Oximetry 97 99 06/17/19 13:20 Stool Occult Blood (GIGI) - Final Stool Laboratory Results - last 24 hr 06/17/19 06/17/19 06/17/19 12:24 12:24 12:24 WBC RBC Hgb Hct MCV MCH MCHC RDW Std Deviation Plt Count MPV Immature Gran % (Auto) Neut % (Auto) Lymph % (Auto) [place] % (Auto) Eos % (Auto) Baso % (Auto) Immature Gran # (Auto) Neut # (Auto) Lymph # (Auto) [place] # (Auto) Eos # (Auto) Baso # (Auto) Sodium 138 Potassium 4.8 Chloride 105 Carbon Dioxide 24 L Anion Gap 9 BUN 46 H Creatinine 0.8 Estimated GFR/1.73 m2 > 60 BUN/Creatinine Ratio 58 Glucose 105 H Calculated Osmolality 288 Calcium 8.7 L Total Bilirubin < 0.15 L AST 7 L ALT < 5 L Alkaline Phosphatase 45 Creatine Kinase 50 Troponin T < 0.010 Kkk-C-Wsfdvheltmb Pept 157 Total Protein 5.2 L Albumin 3.0 L Globulin 2.2 Albumin/Globulin Ratio 1.4 06/17/19 12:24 WBC 9.03 RBC 2.53 L Hgb 6.6 L Hct 22.6 L MCV 89.3 MCH 26.1 L MCHC 29.2 L RDW Std Deviation 20.0 H Plt Count 565 H MPV 9.2 Immature Gran % (Auto) 0.2 Neut % (Auto) 76.2 H Lymph % (Auto) 15.4 L [place] % (Auto) 7.8 Eos % (Auto) 0.3 Baso % (Auto) 0.1 Immature Gran # (Auto) 0.02 Neut # (Auto) 6.88 H Lymph # (Auto) 1.39 [place] # (Auto) 0.70 H Eos # (Auto) 0.03 Baso # (Auto) 0.01 Sodium Potassium Chloride Carbon Dioxide Anion Gap BUN Creatinine Estimated GFR/1.73 m2 BUN/Creatinine Ratio Glucose Calculated Osmolality Calcium Total Bilirubin AST ALT Alkaline Phosphatase Creatine Kinase Troponin T Okz-C-Galzwktpmoh Pept Total Protein Albumin Globulin Albumin/Globulin Ratio Orders Category Date Time Status IV Insertion ORDERED Care 06/17/19 12:15 Completed Nursing- MD Consult Request ROUTINE Care 06/17/19 13:45 Active Transfuse .Give-Transfuse Care 06/17/19 13:44 Active MD [Physician/Provider Consults] Routine Cons 06/17/19 13:44 Ordered Clear Liquid Diet Diet 06/17/19 13:48 Active NPO Diet 06/18/19 00:01 Active CHEST-PORTABLE [RAD] Stat Exams 06/17/19 11:08 Completed CBC WITH ELECTRONIC DIFF [HEME] Stat Lab 06/17/19 12:24 Completed CK PROFILE [SP CHEM] Stat Lab 06/17/19 12:24 Completed COMPREHENSIVE METABOLIC PANEL [CHEM] Stat Lab 06/17/19 12:24 Completed FERRITIN Routine Lab 06/18/19 06:00 Ordered FOLATE Routine Lab 06/18/19 06:00 Uncollected OCCULT BLOOD SCREENING [STOOL] Stat Lab 06/17/19 13:20 Completed PRBC [LRPC (RED CELLS)] [BBK] Stat Lab 06/17/19 13:44 Uncollected PRO B-NATRIURETIC PEPTIDE Stat Lab 06/17/19 12:24 Completed TOTAL IRON [CHEM] Routine Lab 06/18/19 06:00 Uncollected TROPONIN T Stat Lab 06/17/19 12:24 Completed TSH Routine Lab 06/18/19 06:00 Ordered TYPE & SCREEN [BBK] Stat Lab 06/17/19 13:44 Uncollected UIBC W TOTAL IRON [CHEM] Routine Lab 06/18/19 06:00 Uncollected VITAMIN B12 Routine Lab 06/18/19 06:00 Uncollected 0.9% Sodium Chloride Inj [Ns] 1,000 ml Med 06/17/19 11:05 Discontinued IV 500 mls/hr 0.9% Sodium Chloride Inj [Ns] 1,000 ml Med 06/17/19 14:00 Active IV 75 mls/hr Albuterol 2.5MG/Ipratrop 0.5MG [Duoneb (A & A)] Med 06/17/19 11:06 Discontinued 3 ml INH NOW ONE Albuterol 2.5MG/Ipratrop 0.5MG [Duoneb (A & A)] Med 06/17/19 13:49 Active 3 ml INH Q2H PRN PRN Ondansetron [Zofran] Med 06/17/19 13:47 Active 4 mg IV Q4H PRN PRN Aerosol Treatments Routine Oth 06/17/19 11:07 Completed Aerosol Treatments Routine Oth 06/17/19 13:49 Active Aerosol Treatments Stat Oth 06/17/19 11:07 Completed Aerosol Treatments Stat Oth 06/17/19 13:49 Active Result Diagrams: 06/17/19 12:24 06/17/19 12:24 - CONSULTS/PCP/HOSPITALIST Notification #1 *Consult/PCP/Hospitalist*: Hospitalist Dr Liz- Spoke with Aida Time Discussed: 13:44 Reason/Comments: admission- accepts Consult Disposition: Will see in ED Departure - Departure Date of Disposition Decision: 06/17/19 Time of Disposition Decision: 13:57 DIAGNOSIS: Shortness of breath, Anemia Disposition: ADMITTED INPATIENT 09 Certified Medical Emergency: Emergent Condition: Stable Referrals and Follow-Ups: None,PCP [Primary Care Provider] - - Critical Care Note This patient required my direct & personal management of CC.: No Attestation - Physician/ VIDHI Attestation Patient care was provided by Advanced Practice Provider:: No The physician spent face to face time with patient:: Yes Advanced Practice Provider documentation review:: Supervising physician onsite and consulted in the evaluation and care of this patient. The physician did have a face to face encounter with the patient. This chart was documented by the indicated scribe, (Andrea Davis Scribe) and accurately reflects the services I performed and decisions made by , Vicente Martel DO, as attested by the provider's signature.
[2019-06-17] MEDS ORDERED: PROTONIX 80 MG in NS 80 ML IV ONE (14:14)
--- NOTE | 2019-06-17 14:50 | HISTORY AND PHYSICAL ---
PRIMARY CARE PROVIDER: Dr. Mina Aguilar. CHIEF COMPLAINT: Shortness of breath, nausea, vomiting. HISTORY OF PRESENT ILLNESS: Ms. 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 She went to [place] ED yesterday, and was told she was dehydrated and was discharged home. During the night, she started with nausea and vomiting, unknown amount of time. Secondary to the patient being legally blind, she could not describe it for me. She also could not describe her stools. She was found to be anemic in the ED with a hemoglobin and hematocrit of 6 and 22. Upon assessing the patient in the room, she became nauseated, threw up. It was dark brown blood. We will admit her to the ICU, initiate a Protonix drip, type and screen, transfuse with 2 units, consult Dr. Singh, and keep her n.p.o. PAST MEDICAL HISTORY: 1. Legally blind. 2. COPD. 3. Anxiety and depression. 4. Hyperlipidemia. 5. Hypothyroidism. 6. GERD. 7. Chronic constipation. 8. 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 9. Iron-deficiency anemia. PAST SURGICAL HISTORY: Attempted surgery to an AV malformation, but was inoperable. She has been assessed by both [facility] and [place]. FAMILY HISTORY: Reports no cardiac or diabetes. SOCIAL HISTORY: She was over a pack per day smoker for 40 years. Recently has not been able to smoke. No alcohol or drugs. She lives with family. HOME MEDICATIONS: List has not been reconciled. REVIEW OF SYSTEMS: A 12-point review of systems was complete and negative, except for those mentioned in the HPI. PHYSICAL EXAMINATION: VITAL SIGNS: Temperature is 97.8 degrees, heart rate 101, respirations 20, blood pressure 107/71, O2 is 99% on room air. GENERAL: Ms. Harley is an ill-appearing, 63-year-old, female, lying on the bed, nauseated, actively throwing up dark blood. HEENT: Atraumatic, normocephalic. NECK: Supple. Trachea midline. CARDIOVASCULAR: S1, S2 appreciated. No murmurs, gallops, rubs noted. RESPIRATORY: Lung sounds are clear throughout all lung rivera bilaterally. Decreased in the bases. GASTROINTESTINAL: Soft, nontender, nondistended. Positive bowel sounds x4 quadrants. EXTREMITIES: No clubbing. No cyanosis. NEUROLOGIC: The patient was awake and alert, answered questions appropriately. IMAGING AND LABORATORY DATA: White count 9, hemoglobin and hematocrit 6 and 22, platelet count 565,000. Sodium 138, potassium 4.8, BUN 46, creatinine 0.8, blood glucose was 105. Troponin less than 0.010. Chest x-ray shows a hiatal hernia. ASSESSMENT AND PLAN: 1. Upper gastrointestinal bleed. Will type and screen and transfuse 2 units. Nothing by mouth status. Will do a bolus of intravenous Protonix, initiate her on an intravenous drip. Check stool studies. Will have them do her gastric occult. Consult Gastroenterology. Monitor her hemoglobin and hematocrit. Place her in the intensive care unit. Check her anemia panel. 2. Known chronic obstructive pulmonary disease. She is complaining of shortness of breath. However, the patient is quite anemic. Oxygen levels are good on room air. We will provide supplemental oxygen as needed. 3. Chronic obstructive pulmonary disease. A 40-year history smoker. 4. Anxiety and depression. 5. Hyperlipidemia. 6. Hypothyroidism. 7. Gastroesophageal reflux disease. 8. Legally blind. 9. 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 10. Chronic constipation. 11. Iron-deficiency anemia. Aware. Checking studies. 12. Further recommendation to follow physician evaluation, laboratory and diagnostic data. Dictated by THADDEUS Russo for Whit Liz MD cc: MD Cricket Fraga MD
[2019-06-17] MEDS ORDERED: NS IV ONE (15:00)
[2019-06-17] MEDS ORDERED: NEXIUM IV SCH (15:00)
[2019-06-17] MEDS ORDERED: NEXIUM 80 MG in NS 90 ML IV ONE (15:00)
[2019-06-17] MEDS ORDERED: NEXIUM IV ONE (15:00)
[2019-06-17] MEDS ORDERED: NS IV SCH (15:00)
[2019-06-17] MEDS ORDERED: SODIUM CHLORIDE 0.9% INJ PRN (15:27)
[2019-06-17 16:12] LABS: RETIC% 4.28 % (0.8-2.1); RETIC-HE 26.7 PG (28.2-36.6)
[2019-06-17 16:24] LABS: IRON SATURATION 29 %; TIBC 391 ug/dL; TOTAL IRON 114 ug/dL (49-151); UNBOUND IRON 277 ug/dL (112-346)
[2019-06-17] MEDS: NS 1,000 ML IV SCH (16:53)
[2019-06-17 16:59] LABS: FERRITIN 67 ng/mL (13-150)
[2019-06-17] MEDS: NEXIUM 80 MG in NS 90 ML IV SCH (18:27)
--- NOTE | 2019-06-17 18:35 | GASTROENTEROLOGY CONSULTATION ---
DATE: 06/17/2019 Reason for consultation: hematemesis and melena HPI: Ms. Harley is a 63 year old woman with legal blindness, COPD, HLD, hypothyroidism, GERD, chronic constipation, iron deficiency anemia, GERD, depression/anxiety who presents with nausea, vomiting, and lower abdominal cramping. The patient reports associated acute on chronic SOB, lightheadedness, CP, and generalized weakness. She has lost 17 pounds in the last month. No prior EGD/colonoscopy. She takes aspirin 81mg daily. No NSAIDs. Of note, she was seen in [place] ED yesterday and discharged home with "dehydration". In the ED, she had episode of coffee ground emesis and large melenic stool. ROS: as per HPI, otherwise 12 point ROS negative PAST MEDICAL HISTORY: 1. Legally blind. 2. COPD. 3. Anxiety and depression. 4. Hyperlipidemia. 5. Hypothyroidism. 6. GERD. 7. Chronic constipation. 8. 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 9. Iron-deficiency anemia. PAST SURGICAL HISTORY: hysterectomy, CCY; Attempted surgery to an AV malformation FAMILY HISTORY: Reports no cardiac or diabetes. No GI malignancies SOCIAL HISTORY: She was over a pack per day smoker for 40 years. Recently has not been able to smoke. No alcohol or drugs. She lives with family. HOME MEDICATIONS: ASA, venlafaxine, simvastatin, iron, buspirone, fenofibrate, aripiprazole, levothyroxine ALL: NKDA PHYSICAL EXAMINATION: VITAL SIGNS: Temperature is 97.8 degrees, heart rate 101, respirations 20, blood pressure 107/71, O2 is 99% on room air. GEN: awake, alert, in respiratory distress HEENT: anicteric, EOMI, MMM NECK: supple, no jvd CV: tachycardic, regular PULM: increased WOB, no wheezing ABD: soft NT/ND, NABS, no rebound or guarding EXT: no cce NEURO: moving all extremities IMAGING AND LABORATORY DATA: White count 9, hemoglobin and hematocrit 6 and 22, platelet count 565,000. Sodium 138, potassium 4.8, BUN 46, creatinine 0.8, blood glucose was 105. Troponin less than 0.010. Chest x-ray shows a hiatal hernia. A/P: Ms. Harley is a 63 year old woman with legal blindness, COPD, HLD, hypothyroidism, GERD, chronic constipation, iron deficiency anemia, GERD, depression/anxiety who presents with hematemesis and melena with hgb of 6.0. BUN/Cr ratio 4:1 consistent with UGIB. # UGIB: hgb 6.0, PPI IV BID; 2 units pRBC: trending H/H q6h; holding ASA; 2 large bore PIV, no blood thinners; NPO for diagnostic EGD with Dr. Ferguson in AM # COPD: blood as above; recommend nebs prn, supplemental O2 # Acute on chronic YOGESH: unknown baseline hgb # Abnormal weight loss: if EGD negative, then consider diagnostic colonoscopy Will follow with you [facility]
[2019-06-17] MEDS ORDERED: OFIRMEV 1000 MG/ISOTONIC SOLN 1,000 MG/100 ML BOTTLE IV PRN (19:45)
[2019-06-17 20:38] LABS: URINE SOURCE CATH
[2019-06-17 20:43] LABS: BILIRUBIN URINE NEGATIVE (NEGATIVE); BLOOD URINE NEGATIVE (NEGATIVE); COLOR YELLOW; GLUCOSE URINE NEGATIVE (NEGATIVE); KETONE URINE NEGATIVE (NEGATIVE); LEUKOCYTES URINE NEGATIVE (NEGATIVE); NITRITE URINE NEGATIVE (NEGATIVE); PH URINE 5.5; PROTEIN URINE NEGATIVE (NEGATIVE); SP GRAVITY URINE 1.018; TURBIDITY URINE CLEAR (CLEAR); UROBILINOGEN URINE NORMAL (NORMAL)
[2019-06-17 20:55] LABS: UR EPITHELIAL CELLS <10 /HPF (<10); URINE BACTERIA NEGATIVE /HPF; URINE RBC <10 /HPF (<10); URINE WBC <10 /HPF (<10)
[2019-06-18] MEDS: FOLIC ACID 1 MG in NS 50 ML IV SCH ×2 (00:58→17:31)
[2019-06-18] MEDS: NEXIUM 80 MG in NS 90 ML IV SCH ×2 (02:09→10:00)
[2019-06-18 03:15] LABS: HEMATOCRIT 32.7 % (37.0-47.0); HEMOGLOBIN 10.6 g/dL (12.0-16.0)
[2019-06-18 06:00] LABS: BASO# 0.01 X1000 (0.0-0.2); BASO% 0.1 % (0.0-0.8); EOS# 0.05 X1000 (0.0-0.7); EOS% 0.6 % (0.0-10.0); HEMATOCRIT 29.8 % (37.0-47.0); HEMOGLOBIN 9.8 g/dL (12.0-16.0); IMM GRAN# 0.03 X1000 (0.0-0.04); IMM GRAN% 0.4 % (0.0-0.5); LYMPH# 1.85 X1000 (1.2-3.4); LYMPH% 22.2 % (20.5-51.1); MCH 28.4 PG (27-31); MCHC 32.9 g/dL (33-37); MCV 86.4 FL (81-99); MONO# 0.88 X1000 (0.11-0.59); MONO% 10.6 % (1.7-9.3); MPV 10.1 FL (7.4-10.4); NEUT# 5.52 X1000 (1.4-6.5); NEUT% 66.1 % (42.2-75.2); PLT 379 X1000 (130-400); RBC 3.45 XMIL (4.2-5.4); RDW 16.9 % (11.5-14.5); WBC 8.34 X1000 (4.8-10.8)
[2019-06-18 06:34] LABS: AGAP 9; ALB/GLOB RATIO 1.4; ALKALINE PHOSPHATASE 43 U/L (32-104); BUN 37 mg/dL (8-22); CALCIUM 8.4 mg/dL (8.8-10.2); CHLORIDE 111 mmol/L (98-107); COSMO 295; CREATININE 0.8 mg/dL (0.5-0.9); ESTIMATED GFR > 60; GLUCOSE 84 mg/dL (70-104); GOT 8 U/L (10-30); GPT < 5 U/L (10-36); MAGNESIUM 1.5 mg/dL (1.5-2.7); POTASSIUM 4.2 mmol/L (3.5-5.1); SODIUM 144 mmol/L (136-145); TCO2 24 mmol/L (25-35); TOTAL PROTEIN 5.2 g/dL (6.3-8.3)
[2019-06-18] MEDS ORDERED: MAGNESIUM SULFATE 2 GM/S.W.I. 2 GM/50 ML IVPB IV ONE (06:42)
[2019-06-18] MEDS ORDERED: SYNTHROID IV SCH (07:00)
[2019-06-18] MEDS ORDERED: ROBINUL ONE (07:12)
[2019-06-18] MEDS ORDERED: XYLOCAINE-MPF 2% ONE (07:12)
[2019-06-18] MEDS ORDERED: DIPRIVAN 1% ONE (07:12)
--- NOTE | 2019-06-18 07:30 | Diag Imaging Result Doc PS360 ---
EXAM: CHEST-PORTABLE INDICATION: dyspnea TECHNIQUE: One view COMPARISON: 06/17/2019 FINDINGS: The lungs are grossly clear. There is no discrete pleural fluid collection or pneumothorax. There is a stable hiatal hernia. Cardiac silhouette and central vasculature are grossly unremarkable, otherwise. IMPRESSION: Stable hiatal hernia. No definite acute chest pathology by plain radiograph. Electronically signed by Ru West 06/18/2019 7:27 AM
[2019-06-18] MEDS: NS 1,000 ML IV SCH ×2 (08:00→17:23)
--- NOTE | 2019-06-18 10:30 | ENDOSCOPY OPERATIVE NOTE ---
[facility] ENDOSCOPY OPERATIVE NOTE , PATIENT: Soledad Harley ADMISSION DATE: 06/18/2019 MR#: [id number] : 1955 EGD PROCEDURE REPORT PROCEDURE DATE: 06/18/2019 SURGEON: Lucho Ferguson MD STATUS: inpatient BINGO WORKER: Elena Bolden PREOPERATIVE DIAGNOSIS: The patient is a 63 yr old female here for an EGD due to acute post hemorrha gic anemia and GI Bleed, Nausea, vomitting. PROCEDURE PERFORMED: EGD w/ control of bleeding MEDICATIONS: Per Anesthesia TOPICAL ANESTHETIC: none CONSENT: The patient understands the risks and benefits of the procedure and understands that these r isks include, but are not limited to: sedation, allergic reaction, infection, perforation and/or bleeding. Alternative means of evaluation and treatment include, among others: physical exam, x-rays, and/or surgical intervention. The patient elects to proceed with this endoscopic procedure. HISORY AND PHYSICAL: 06/18/2019 function. Hand hygiene and appropriate measures for infection prevention was taken. After the risks, benefits and alternatives of the procedure were thoroughly explained, Informed consent was verified, confirmed and timeout was successfully executed by the treatment team. The patient was anesthetized with topical anesthesia and the [id number] ([id number]) endoscope was introduced through the mouth and advanced to the second portion of the duoden um. Retroflexion was performed in the stomach and revealed a hiatal hernia. The gastroscope was then slowly withdrawn and removed. ESOPHAGUS: A 5 cm hiatal hernia was noted. The z-line was noted at. 40. Multiple linear Erosion( s) were found in the hiatal hernia STOMACH: Mild gastritis (inflammation) was found in the gastric body and gastric antrum. DUODENUM: An arteriovenous malformation measuring 3mm in size was found in the 2nd part of the duoden um. Cautery was applied to the site. With complete hemostasis achieved. SPECIMENS REMOVED: No ADVERSE EVENTS: There were no complications. POSTOPERATIVE DIAGNOSIS: 1. 5 cm hiatal hernia 2. The z-line was noted at 3. Erosion(s) were found 4. Gastritis (inflammation) was found in the gastric body and gastric antrum 5. Arteriovenous malformation measuring 3mm in size was found in the 2nd part of the duodenum; caute ry was applied to the site; with complete hemostasis achieved RECOMMENDATIONS: 1. Begin an anti-reflux lifestyle: avoid acidic foods and drinks (like coffee a nd soda), do not lie down three hours after eating, elevate the head of your bed 6 to 9 inches, stop smokiing and redu ce weight if needed. 2. Quit smoking; continue PPI QD for 3 months. Start Iron and MVI supplementation. REPEAT EXAM: Lucho Ferguson MD eSigned: Lucho Ferguson MD 06/18/2019 10:30 AM Revised: 06/18/2019 10:30 AM cc: PATIENT NAME: Soledad Harley MR#: [id number]
[2019-06-18] MEDS ORDERED: TYLENOL PO PRN (16:41)
[2019-06-18] MEDS ORDERED: NEXIUM IV SCH (18:00)
[2019-06-18] MEDS: BUSPAR PO SCH (20:43)
[2019-06-18] MEDS: ICAR-C PO SCH (20:43)
[2019-06-19] MEDS: NS 1,000 ML IV SCH ×4 (02:08→18:50)
--- NOTE | 2019-06-19 05:09 | PROGRESS NOTE ---
DATE: 06/18/2019 SUBJECTIVE: The patient is resting comfortably. She has no complaints. She denies having any nausea, vomiting, or abdominal pain. OBJECTIVE: Vital Signs: Temperature 98.6 degrees, blood pressure 104/47, heart rate 99, respirations 21, O2 saturations 100% on 2 L nasal cannula, intake 1.8 L, output 910. General: This is a chronically ill-appearing female, lying in bed in no acute distress. Heart: S1, S2 normal. Regular rate and rhythm. Lungs: Clear to auscultation bilaterally. Abdomen: Positive bowel sounds. Soft, nontender, nondistended. Extremities: No edema. No cyanosis. No calf tenderness. Neurologic: The patient is legally blind. She is alert and oriented x4. No focal neurologic deficits noted. LABS: White blood cell count 8.3, hemoglobin 9.8, hematocrit 29, platelets 379,000. Sodium 144, potassium 4.2, chloride 111, CO2 24, BUN 37, creatinine 0.8, glucose 84, albumin 3. ASSESSMENT AND PLAN: 1. Gastrointestinal bleed secondary to bleeding arteriovenous malformation s/p cauterization in the duodenum. Continue on the proton pump inhibitor therapy. Will monitor the hemoglobin and hematocrit closely. 2. Hypothyroidism. Continue on Synthroid. 3. Folate deficiency. Continue on folic acid replacement. 4. Vitamin B12 deficiency. Will start the patient on vitamin B12 replacement. 5. Anemia of acute blood loss. Improved. Will monitor the hemoglobin and hematocrit closely. 6. Chronic obstructive pulmonary disease. Stable. 7. Situational depression. Will restart the Effexor. cc: Whit Liz MD [facility]
[2019-06-19 06:27] LABS: BASO# 0.01 X1000 (0.0-0.2); BASO% 0.1 % (0.0-0.8); EOS# 0.12 X1000 (0.0-0.7); EOS% 1.4 % (0.0-10.0); HEMATOCRIT 27.6 % (37.0-47.0); HEMOGLOBIN 8.7 g/dL (12.0-16.0); IMM GRAN# 0.03 X1000 (0.0-0.04); IMM GRAN% 0.4 % (0.0-0.5); LYMPH# 1.15 X1000 (1.2-3.4); LYMPH% 13.7 % (20.5-51.1); MCH 27.9 PG (27-31); MCHC 31.5 g/dL (33-37); MCV 88.5 FL (81-99); MONO# 0.79 X1000 (0.11-0.59); MONO% 9.4 % (1.7-9.3); MPV 10.2 FL (7.4-10.4); NEUT# 6.28 X1000 (1.4-6.5); PLT 350 X1000 (130-400); RBC 3.12 XMIL (4.2-5.4); RDW 17.5 % (11.5-14.5); WBC 8.38 X1000 (4.8-10.8)
[2019-06-19 07:11] LABS: AGAP 7; CHLORIDE 109 mmol/L (98-107); GLUCOSE 92 mg/dL (70-104); POTASSIUM 4.1 mmol/L (3.5-5.1); SODIUM 144 mmol/L (136-145); TCO2 28 mmol/L (25-35)
[2019-06-19 07:12] LABS: ALB/GLOB RATIO 1.4; ALKALINE PHOSPHATASE 44 U/L (32-104); BUN 10 mg/dL (8-22); CALCIUM 8.8 mg/dL (8.8-10.2); COSMO 286; CREATININE 0.7 mg/dL (0.5-0.9); ESTIMATED GFR > 60; GOT 9 U/L (10-30); GPT < 5 U/L (10-36); MAGNESIUM 1.8 mg/dL (1.5-2.7); TOTAL BILIRUBIN 0.17 mg/dL (0.20-1.00); TOTAL PROTEIN 5.2 g/dL (6.3-8.3)
[2019-06-19] MEDS: SYNTHROID PO SCH (08:03)
[2019-06-19] MEDS: EFFEXOR XR PO SCH (08:03)
[2019-06-19] MEDS: VITAMIN B-12 SL SCH (08:03)
[2019-06-19] MEDS: ICAR-C PO SCH ×2 (08:03→20:32)
[2019-06-19] MEDS: CENTRUM SILVER PO SCH (08:04)
[2019-06-19] MEDS: ABILIFY PO SCH (08:04)
[2019-06-19] MEDS: BUSPAR PO SCH ×2 (08:05→23:27)
[2019-06-19] MEDS: PATIENT'S OWN MED INH SCH (14:58)
--- NOTE | 2019-06-19 16:22 | PROGRESS NOTE ---
DATE: 06/19/2019 REASON FOR ADMISSION: Miss Harley was admitted. She is a patient of Dr. Da Aguilar. She was admitted with shortness of breath, nausea, and vomiting. 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 Went to [facility], was told she was dehydrated, and discharged home. During the night she started with nausea and vomiting, unknown amount of time secondary to the patient is legally blind and she could not describe it. Found to be anemic with hemoglobin 6 and hematocrit 22. Upon assisting the patient to room, she became nauseated and threw up. She was put on IV Protonix and they transfused 2 units of packed red blood cells. PAST MEDICAL HISTORY: Once again: 1. Legally blind. 2. COPD. 3. Anxiety and depression. 4. Hyperlipidemia. 5. Hypothyroidism. 6. Gastroesophageal reflux disease. 7. Chronic constipation. 8. 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 9. Iron deficiency anemia. ADMISSION DIAGNOSES: 1. Upper gastrointestinal bleed. They gave her 2 units of blood and put her on IV Protonix and GI is following. 2. Chronic obstructive pulmonary disease. Complaining of shortness of breath. I suspect anemia was a major contributor. Give her supplementary O2 and transfuse. 3. Chronic obstructive pulmonary disease. A 40-year history of smoking. 4. Anxiety and depression. 5. Hyperlipidemia. 6. Hypothyroidism. 7. Gastroesophageal reflux disease. 8. Legally blind. 9. 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 10. Chronic constipation. 11. Iron deficiency anemia. PHYSICAL EXAMINATION: general: The patient was feeling better. She had no complaints this morning. vital signs: Remains afebrile, temperature 98.2 degrees, pulse 79, respirations 20, blood pressure 108/67. heent: Pupils are equal and round. lungs: Lungs are clear in all lung rivera. Cardiovascular: Regular rhythm and rate without murmur or S3. Abdomen: Soft. skin: Warm and dry. Genitourinary: Urine output is almost 6 L. ASSESSMENT AND PLAN: 1. Gastrointestinal bleeding secondary to bleeding arteriovenous malformations status post cauterization in the duodenum. Continue proton pump inhibitor therapy. Follow hemoglobin and hematocrit. She was given 2 units of packed red blood cells. 2. Hypothyroidism. On Synthroid. 3. Folate deficiency. Given folic acid replacement. 4. Vitamin B12 deficiency. The patient on B12 replacement. 5. Anemia of acute blood loss. 6. Chronic obstructive pulmonary disease, stable. 7. Situational depression. Still on Effexor. REVIEW OF ORDERS: Getting Tylenol 650 mg q. 6 hours p.r.n. and Abilify 10 mg a day. She has refused her BuSpar, so we stopped the BuSpar, but she was getting 15 mg b.i.d. B12 at 2500 mcg sublingual q. day, folic acid 1 mg daily, Icar 1 twice a day, Synthroid 100 mcg q. day, multivitamin 1 a day, normal saline at 75 mL an hour, Effexor ER 150 mg a day, and then the Nexium 40 mg IV q. 12. cc: Chaka Mcbride MD
[2019-06-19] MEDS: FOLIC ACID 1 MG in NS 50 ML IV SCH (17:30)
--- NOTE | 2019-06-19 23:43 | PROVIDER PROGRESS NOTE ---
Progress Note S: No acute overnight events. Afebrile. No N/V/F, CP, SOB. +BM. Tolerating PO O: Last Vital Signs Temp 98.2 F 06/19/19 23:24 Pulse 80 06/20/19 00:02 Resp 22 06/20/19 00:02 BP 109/60 06/20/19 00:02 Pulse Ox 100 06/20/19 00:02 Height 5 ft 2 in Weight 141 lb GEN: awake, alert, NAD HEENT: anicteric, EOMI, MMM NECK: supple, no jvd CV: regular, no murmurs PULM: increased WOB, no wheezing ABD: soft NT/ND, NABS, no rebound or guarding EXT: no cce NEURO: moving all extremities LABS: 06/19/19 06/19/19 06:00 06:00 WBC 8.38 Hgb 8.7 L Plt Count 350 Sodium 144 Potassium 4.1 Chloride 109 H Carbon Dioxide 28 Anion Gap 7 BUN 10 D Creatinine 0.7 POSTOPERATIVE DIAGNOSIS: 1. 5 cm hiatal hernia 2. The z-line was noted at 3. Erosion(s) were found 4. Gastritis (inflammation) was found in the gastric body and gastric antrum 5. Arteriovenous malformation measuring 3mm in size was found in the 2nd part of the duodenum; cautery was applied to the site; with complete hemostasis achieved A/P: Ms. Harley is a 63 year old woman with legal blindness, COPD, HLD, hypothyro idism, GERD, chronic constipation, iron deficiency anemia, GERD, depression/anxiety who presented with hematemesis and melena who was found to have gastric erosions, gastritis, and duodenal AVM (cauterized) on EGD 06/18. Hgb 8.7. No overt bleeding. No transfusion requirements. # UGIB: found to have gastric erosions, gastritis, and AVMs on EGD; non- bleeding; continue PPI PO BID for 3 months; avoid NSAIDs/ASA # COPD: blood as above; recommend nebs prn, supplemental O2 # Acute on chronic YOGESH: unknown baseline hgb; continue iron # Patient will need outpatient colonoscopy upon discharged. Patient needs GI follow-up in 2 weeks. Will sign off. Please call with questions
[2019-06-20] MEDS: NS 1,000 ML IV SCH ×2 (07:49→22:47)
[2019-06-20] MEDS: SYNTHROID PO SCH (08:20)
[2019-06-20] MEDS: ABILIFY PO SCH (08:20)
[2019-06-20] MEDS: ICAR-C PO SCH ×2 (08:20→20:52)
[2019-06-20] MEDS: EFFEXOR XR PO SCH (08:20)
[2019-06-20] MEDS: VITAMIN B-12 SL SCH (08:20)
[2019-06-20] MEDS: CENTRUM SILVER PO SCH (08:20)
[2019-06-20] MEDS: BUSPAR PO SCH ×2 (08:23→20:51)
--- NOTE | 2019-06-20 09:21 | PROGRESS NOTE ---
DATE: 06/20/2019 SUBJECTIVE: Ms. Harley is feeling good. She wants to try and go home. Remains afebrile. OBJECTIVE: Vital Signs: Temperature is 98.3 degrees, pulse is 93, respirations 20, blood pressure 106/74. Eyes: Pupils are equal and round. Lungs: Clear in all lung rivera. Cardiovascular exam: Regular rhythm and rate without murmur or S3. : Urine output is 4000 mL. IMPRESSION: 1. She is legally blind. 2. Known chronic obstructive pulmonary disease. 3. Hypothyroidism. 4. Hypercholesterolemia. 5. Gastroesophageal reflux disease. 6. Chronic constipation. 7. Iron deficiency anemia. 8. Depression/anxiety. 9. Presented with hematemesis, found to have some gastric erosions, gastritis, duodenal arteriovenous malformation, which were cauterized on esophagogastroduodenoscopy of 06/18. No further overt bleeding. ASSESSMENT AND PLAN: 1. She has gastric erosions, gastritis. Continue high-dose proton pump inhibitor. 2. Chronic obstructive pulmonary disease . Breathing comfortably. No problem with air-gas exchange. 3. Iron deficiency anemia. Continue her iron and pursue colonoscopy at discharge. I think she can transfer to the floor and she may be able to go home. Blood pressures have been running a little bit low. She usually runs around 130 systolic. She still has some blood pressures down in the 80s and so she has not taken her BuSpar, but she is on her Abilify. Getting normal saline at 75 mL an hour. Her hematocrit is 27 hemoglobin 8.7; that was yesterday. We will check another CBC today when I move her to the floor. Possibly she could be discharged then. cc: Chaka Mcbride MD
[2019-06-20 09:32] LABS: BASO# 0.01 X1000 (0.0-0.2); BASO% 0.2 % (0.0-0.8); EOS# 0.16 X1000 (0.0-0.7); EOS% 2.9 % (0.0-10.0); HEMATOCRIT 29.5 % (37.0-47.0); HEMOGLOBIN 9.2 g/dL (12.0-16.0); IMM GRAN# 0.02 X1000 (0.0-0.04); IMM GRAN% 0.4 % (0.0-0.5); LYMPH# 0.83 X1000 (1.2-3.4); LYMPH% 15.1 % (20.5-51.1); MCH 28.6 PG (27-31); MCHC 31.2 g/dL (33-37); MCV 91.6 FL (81-99); MONO# 0.51 X1000 (0.11-0.59); MONO% 9.3 % (1.7-9.3); MPV 10.2 FL (7.4-10.4); NEUT# 3.95 X1000 (1.4-6.5); NEUT% 72.1 % (42.2-75.2); PLT 347 X1000 (130-400); RBC 3.22 XMIL (4.2-5.4); RDW 18.2 % (11.5-14.5); WBC 5.48 X1000 (4.8-10.8)
[2019-06-20] MEDS: FOLIC ACID 1 MG in NS 50 ML IV SCH (18:58)
[2019-06-20] MEDS: PATIENT'S OWN MED INH SCH (21:33)
[2019-06-21 08:07] VITALS: BP 113/57
[2019-06-21] MEDS: ABILIFY PO SCH (09:17)
[2019-06-21] MEDS: CENTRUM SILVER PO SCH (09:17)
[2019-06-21] MEDS: ICAR-C PO SCH (09:17)
[2019-06-21] MEDS: VITAMIN B-12 SL SCH (09:17)
[2019-06-21] MEDS: EFFEXOR XR PO SCH (09:17)
[2019-06-21] MEDS: SYNTHROID PO SCH (09:17)
[2019-06-21] MEDS: BUSPAR PO SCH (09:20)
[2019-06-21] MEDS: PATIENT'S OWN MED INH SCH (09:20)
--- NOTE | 2019-06-21 10:22 | DISCHARGE SUMMARY ---
ADMISSION DATE: 06/17/2019 DISCHARGE DATE: 06/21/2019 HISTORY: She is a patient of Dr. Mina Aguilar. This is a 63-year-old female who came in with shortness of breath, nausea, and vomiting, has a history of legal blindness, AVM malformations that are inoperable, COPD, anxiety, depression, hyperlipidemia, hypothyroidism, gastroesophageal reflux disease, chronic constipation, iron-deficiency anemia, and has a 1-week report of increased weakness. She went to [facility] the day before this admission, on 06/16/2019, was told she was dehydrated, discharged home. During that night, she started having nausea, vomiting, dehydrated, and she returned to the hospital. The patient is legally blind, could not describe any of the stool, not sure if there was any blood. In the emergency room, hemoglobin was 5, hematocrit 22, became nauseated and threw up in the emergency room. Transfused 2 units of packed red blood cells. Admitted to the hospital. PAST MEDICAL HISTORY: 1. Legally blind. 2. COPD. 3. Anxiety and depression. 4. Hyperlipidemia. 5. Hypothyroidism. 6. Gastroesophageal reflux disease. 7. Chronic constipation. 8. AV malformations in the skull and bony structures, inoperable. 9. Iron-deficiency anemia. PAST SURGICAL HISTORY: Attempted surgery for an AV malformation, but was inoperable. She had been assessed at [facility] in [place]. ADMISSION DIAGNOSES: 1. Upper gastrointestinal bleed. I gave her 2 units of packed red blood cells, put her on proton pump inhibitor intravenously. 2. History of chronic obstructive pulmonary disease. I gave her supplementary oxygen, but her breathing, oxygen, and air exchange remain good. 3. Anxiety and depression. 4. Hyperlipidemia. 5. Hypothyroidism. 6. Gastroesophageal reflux disease. 7. Legally blind. 8. Arteriovenous malformations in the bony structures of her skull. 9. Chronic constipation. 10. Iron-deficiency anemia. HOSPITAL COURSE: A Gastroenterology consult was obtained. She had a hemoglobin of 6, and was put on proton pump inhibitor IV b.i.d. I gave her 2 units of packed red blood cells. Had two large- bore peripheral IVs. There was no blood thinners. Held her n.p.o. Chest x-ray on 06/18/2019 showed stable hiatal hernia, no definite acute chest pathology. Underwent EGD, found mild gastritis in the gastric body and gastric antrum, and AV malformation measuring 3 mm in size found in the second part of the duodenum. Cautery was applied to the site, and she remained stable. Blood counts remained stable. Hematocrit 29, hemoglobin 9.2. She wanted to go home. I recommend an outpatient colonoscopy that she can follow up with, but will discharge her home. DISCHARGE MEDICATIONS: Will keep her on her Abilify 10 mg a day. She refused the BuSpar, so I think she has stopped that, she was taking 15 mg b.i.d. Vitamin B12 at 2500 mcg sublingual daily. Folic acid, she was getting 1 mg IV. Will give that p.o. daily. Iron with vitamin C, Icar-C one twice a day, Synthroid 100 mcg daily, Centrum Silver 1 a day, Effexor ER 150 mg daily. FOLLOWUP: Follow up with primary care in a couple of weeks. cc: Chaka Mcbride MD
== END 2019-06-21 11:57 | disposition home or self-care (01) | DRG 378 ==
LOC: ED 09:56 → SUATTDRO 14:55 → EDIPHOLD 14:55 → ICU 16:54 → 3N 06-20 13:20
PROVIDERS: ATTEND Emergency Medicine
CPT/HCPCS: 36430; 71010; 71045; 80053; 81001; 82270; 82550; 82607; 82728; 82746; 83540; 83550; 83735; 83880; 84443; 84484; 85014; 85018; 85025; 85045; 86850; 86900; 86901; 86920; 94640; 94761; 96361; 96374; 97162; 99285; A9270; C9113; J0131; J2405; J3475; J7030; P9016; S0164